=== PATIENT | female | born 2000 | race Caucasian/White ===

== ENCOUNTER → 2020-08-27 | Outpatient (CLI) | payer BC ==
[~2020-08-27] VITALS: Ht 162.6 cm; Wt 115.5 kg
[~2020-08-27] MED LIST: PRENATAL TABLET PO
--- NOTE | 2020-08-27 12:59 | NUR ---
Pt presents with mother ambulatory to unit at 1210. Pt states she was sent from office to check for leaking of fluid. She states she passed a blood clot this weekend and was at the office for follow up, doing tele conference with MFM. MFM concerned that pt leaking fluid since this weekend due to low fluid noted on ultrasound. Pt denies notice or feeling of leaking fluid, denies vaginal bleeding since this weekend. Pt state she is having some bloody/brownish discharge. Reports good movement and no contractions. EFM explained and placed. AmnioTest done, swab negative for fluid. Dr. Lovell notified of pt status, FHR, and Amniotest results. Orders received for AmnioSure.
[2020-08-27 13:20] VITALS: BP 141/75; PULSE 111; TEMP 98.9
--- NOTE | 2020-08-27 13:43 | NUR ---
Per Roles, discharge orders entered in. Discharge instructions provided and discussed with pt, verbal acknowledgement obtained. Pt and mother left unit at 1325
== END ==
LOC: LDRO 11:54
DX: O41.02X0 Oligohydramnios, second trimester, not applicable or unspecified (principal); Z3A.22 22 weeks gestation of pregnancy

== ENCOUNTER 2020-08-30 10:19 | Inpatient (IN) | payer BC ==
[2020-08-30] VITALS (13 sets, daily range): BP systolic 121–149; BP diastolic 62–78; PULSE 85–133; TEMP 98.6
[~2020-08-30] VITALS: Ht 162.6 cm; Wt 115.0 kg
--- NOTE | 2020-08-30 09:24 | NUR ---
PT HERE DUE TO VAGINAL BLEEDING AND CRAMPING THAT STARTED ABOUT 0100 THIS MORNING. CRAMPING IS INTERMITTENT AND PAINFUL BUT NOT GETTING ANY WORSE. BLEEDING HAS INCREASED. HEART TONES FOUND IN THE 160'S. NO VAGINAL EXAM PERFORMED DR HILL IS ON HER WAY TO ASSESS PT. PLAN OF CARE REVIEWED.
--- NOTE | 2020-08-30 10:30 | NUR ---
CANNOT PALPATE CONTRACTIONS NOR CAN TRACE ANY CONTRACTIONS. PT PUSHING BUTTON WHEN SHE HAS THEM
[2020-08-30 10:37] LABS: MEAN CELL VOLUME 86 fl (80.0-100.0); MEAN CORPUSCULAR HEMOGLOBIN 29 pg (27.0-31.0); MEAN CORPUSCULAR HGB CONC 34 g/dl (33.0-37.0); MEAN PLATELET VOLUME 9.6 fl (7.4-10.4); PLATELET COUNT 325 K/mm3 (130-400); RED BLOOD COUNT 3.75 M/mm3 (4.10-5.30); REDCELL DISTRIBUTION WIDTH-CV 14.1 % (11.5-14.5)
[2020-08-30 10:39] LABS: HEMATOCRIT 32.3 % (37.0-47.0)
[2020-08-30 10:47] LABS: ALBUMIN 3.9 gm/dL (3.5-5.0); BILIRUBIN,TOTAL 0.4 mg/dL (0.0-1.0); CALCIUM 9.5 mg/dL (8.4-10.2); CREATININE, serum 0.51 (0.52-1.25); POTASSIUM 4.1 mmol/L (3.4-5.0); TOTAL PROTEIN 7.2 gm/dL (6.4-8.2)
--- NOTE | 2020-08-30 11:50 | NUR ---
0945-DR HILL IN TO SEE PT. PT HAVING BRIGHT RED BLEEDING WITH A SLOW TRICKLE COMING OUT OF HER VAGINA CONSTANTLY. PT HAS BUTTON SHE IS PUSHING WHEN SHE IS EXPERIENCING CONTRACTIONS WHICH ARE IRREGULAR BUT MAKE PT STOP AND HAVE TO BREATHE THROUGH THEM. DR HILL PERFORMS SPECULUM EXAM, SVE /-3 AND BEDSIDE ULTRASOUND CONFIRMING BREECH PRESENTATION. DR DISCUSSES PLAN OF CARE WITH PT AND HER MOTHER. PLAN WILL BE TO TRANSFER PT TO HIGHER LEVEL OF CARE-SPECIFICALLY [facility] SINCE PT HAS BEEN IN CONTACT WITH MFM AT [facility]. PT AGREES TO PLAN. 1010-IV STARTED IN RIGHT HAND WITH LR INFUSING. 1020-12MG CELESTONE GIVEN IM IN LEFT THIGH. SECOND IV SITE STARTED IN LEFT FOREARM. 1030-6MG MAGNESIUM SULFATE BOLUS STARTED IN RIGHT HAND IV SITE 1034-ZITHROMAX 1GM GIVEN PO 1038-AMPICILLIN 2GM STARTED PER LEFT FOREARM IV 1040-DR HILL IN TO TALK WITH PT. SHE WILL BE TRANSFERRED TO [facility]. 1050-DR GILLIAM, SCALE SHOOTER, IN TO TALK WITH PT REGARDING PLAN FOR BABY PT IS 22 WEEKS AND FETUS IN NON-VIABLE. DR WATT, NICU DR FROM [facility], ON SPEAKER PHONE TALKING WITH MOTHER ABOUT PLAN OF CARE WITH THE HOPE THE BABY WILL NOT DELIVERY IMMINENTLY. 1054-LARGE AMOUNT OF POOLED BLOOD UNDER PT. DR HILL IN. SPECULUM EXAM PERFORMED WITH SVE AND PT IS /-1 1102-NOEL CATHETER PLACED WITH CLEAR YELLOW URINE RETURNED AND PT PLACED IN [place] AFTER NOEL PLACEMENT. 1122-PT FEELING LIKE SHE NEEDS TO VOMIT, SAT HER UP AND STARTED VOMITING IMMEDIATELY. CLEANED PT UP AND REPOSITIONED. FHT'S VERY DIFFICULT TO MONITOR. PT CONTINUES TO PUSH HER BUTTON MARKING IRREGULAR CONTRACTIONS. 1140-COVID SWAB PERFORMED PER ORDER 1142-PT CRYING SAYING HER BACK HURTS TERRIBLE, SHE IS HAVING A VERY STRONG CONTRACTION AND FEELS LIKE SHE NEEDS TO POOP. SVE /+1 1143-DR HILL IN. PT PREPPED AND POSITIONED FOR DELIVERY. 1145-DR GILLIAM AND NURSERY NURSES TO LABOR ROOM. NOEL CATHETER REMOVED. 1149- OF MALE INFANT. TO MOTHER'S CHEST IMMEDIATELY AND WRAPPED IN WARM BLANKETS. NO RESUSCITATIVE MEASURES TO BE TAKEN DUE TO EXTREME PREMATURITY AND NON-VIABLE FETUS. MAGNESIUM SULFATE STOPPED.
--- NOTE | 2020-08-30 11:50 | NUR ---
DR HILL AT BEDSIDE AFTER DELIVERY OF INFANT. WAITING FOR DELIVERY OF PLACENTA. PERINEUM INTACT
--- NOTE | 2020-08-30 12:56 | NUR ---
[facility] regarding Baby Boy Alen. Due to size he will not be a candidate for transplant. Confirmation #[id number]
--- NOTE | 2020-08-30 13:50 | NUR ---
PT RESTING IN BED. EATING A SNACK. FUNDUS FIRM WITH MINIMAL BLEEDING OBSERVED.
--- NOTE | 2020-08-30 14:20 | NUR ---
IV TO INT ON RIGHT HAND. LEFT FOREARM INT DISCONTINUED. PT UP TO BATHROOM. VOIDS WITHOUT DIFFICULTY. PERICARE PERFORMED. BACK TO BED. EDUCATION COMPLETE.
[2020-08-30 16:42] LABS: HEMOGLOBIN 10.9 g/dl (12.5-16.0); MEAN CELL VOLUME 89 fl (80.0-100.0); MEAN CORPUSCULAR HEMOGLOBIN 30 pg (27.0-31.0); MEAN CORPUSCULAR HGB CONC 33 g/dl (33.0-37.0); MEAN PLATELET VOLUME 9.7 fl (7.4-10.4); PLATELET COUNT 366 K/mm3 (130-400); RED BLOOD COUNT 3.69 M/mm3 (4.10-5.30)
[2020-08-30 16:50] LABS: HEMATOCRIT 32.7 % (37.0-47.0)
== END 2020-08-30 17:50 | disposition home or self-care (01) | DRG 807 ==
LOC: LDRO 10:19 → LDR 12:25
PROVIDERS: ADMIT Student in an Organized Health Care Education/Training Program
PROC: 10E0XZZ Delivery of Products of Conception, External Approach (ICD-10-PCS; principal; 2020-08-30)
DX: O42.012 Preterm premature rupture of membranes, onset of labor within 24 hours of rupture, second trimester (principal); Z37.0 Single live birth; O99.214 Obesity complicating childbirth; E66.9 Obesity, unspecified; Z20.822 Contact with and (suspected) exposure to COVID-19; O69.81X0 Labor and delivery complicated by cord around neck, without compression, not applicable or unspecified; O32.1XX0 Maternal care for breech presentation, not applicable or unspecified; Z3A.22 22 weeks gestation of pregnancy
CPT/HCPCS: J0290; J0702; J2590; J3475; J7120

== ENCOUNTER 2021-07-13 13:20 | Inpatient (IN) | payer BC ==
[~2021-07-13] VITALS: Ht 162.6 cm; Wt 125.9 kg
[2021-07-14] VITALS (50 sets, daily range): BP systolic 126–186; BP diastolic 61–743; PULSE 64–155; TEMP 97–98.9
--- NOTE | 2021-07-14 06:15 | NUR ---
0615-40.3 arrives on unit for scheduled IOL. Ambulates to LDR5 with family. Changed to gown. Normal movement, denies LOF, VB. Reports occasional contractions. 0621- EFM explained and placed x2. Reviewed plan of care. Assessment completed, consent explained and signed. 0638-FHR decel from baseline 150s to 115bpm and lasting 100 seconds. Spontaneous return to baseline. Contractions tracing intermittenly. Unable to determine FHR decel onset. Patient wedged left. Will continue to monitor. 0700-IV to right hand. Routine labs obtained. FHR 150, minimal variablity. LR bolus started. 0727-Pitocin explained and started at 2 mu per orders. Plan of care reviewed with patient, verbalizes understanding. Call light within reach.
[2021-07-14] MEDS ORDERED: PRENATAL TABLET PO (06:46)
[2021-07-14 07:34] LABS: BASO % 0.2 % (0.0-2.0); EOS % 0.2 % (0-4.0); GRAN # 7.7 K/mm3 (1.4-6.5); GRAN % 76.3 % (42.2-75.2); HEMOGLOBIN 11.5 g/dl (12.5-16.0); LYMPH # 1.6 K/mm3 (1.2-3.4); LYMPH % 16.1 % (20.0-51.0); MEAN CELL VOLUME 86 fl (80.0-100.0); MEAN CORPUSCULAR HEMOGLOBIN 29 pg (27.0-31.0); MEAN CORPUSCULAR HGB CONC 33 g/dl (33.0-37.0); MONO # 0.7 K/mm3 (0.1-0.6); MONO % 6.7 % (1.7-9.3); PLATELET COUNT 302 K/mm3 (130-400); RED BLOOD COUNT 4.03 M/mm3 (4.10-5.30); REDCELL DISTRIBUTION WIDTH-CV 15.2 % (11.5-14.5)
[2021-07-14 07:36] LABS: HEMATOCRIT 34.6 % (37.0-47.0)
--- NOTE | 2021-07-14 08:30 | NUR ---
0830-EFM halving heart rate. RN at bedside. FHR audible at 140s.
--- NOTE | 2021-07-14 10:45 | NUR ---
1045-Difficulty tracing contractions due to maternal position. This RN at bedside adjusting TOCO and repositioning patient.
--- NOTE | 2021-07-14 10:45 | NUR ---
1045-Bilat sideline hip release done.
--- NOTE | 2021-07-14 11:00 | NUR ---
1100-Difficulty tracing contractions due to maternal position. This RN at bedside adjusting TOCO.
--- NOTE | 2021-07-14 11:15 | NUR ---
this RN is taking over for lunch relief at this time
--- NOTE | 2021-07-14 12:32 | NUR ---
1232- at bedside assessing patient and FHR. SVE 5100/-1. 1235- reviews IUCP with patient. Patient agrees with plan of care. IUCP is placed. Patient tolerates well. 1245-MVUs 210. 1338-MVUs 170. 1343- at bedside assessing patient and FHR. SVE 6/100/-1. Plan of care discussed. 1430-MVUs 235.
--- NOTE | 2021-07-14 15:10 | NUR ---
1510-MVUs 170.
--- NOTE | 2021-07-14 15:30 | NUR ---
1530-Difficulty tracing FHR due to maternal position. This RN at bedside adjusting FHR monitor. 1543-FSE placed by ANUJ Hill.
--- NOTE | 2021-07-14 16:30 | NUR ---
1630-MVUs 255
--- NOTE | 2021-07-14 16:35 | NUR ---
1635- at bedside assessing patient and FHR. 1640-SVE /+1 per physician.
--- NOTE | 2021-07-14 17:20 | NUR ---
1720-SVE C/100/+1. Patient pushing intermittenly. 1722: notified that patient is ready to push. 1737: at bedside, instructs patient to push. 1740:Patient prepared for vaginal delivery.
--- NOTE | 2021-07-14 17:45 | NUR ---
174-Spontaneous vaginal delivery of viable female infant. Infant placed on patient's abdomen. Dried and stimulated by ANUJ Vo. 1746-Cord clamped x2 and cut by FOB. care assumed by ANUJ Vo. Cord blood obtained. 1749-Lidocaine injected by . See EMAR. 1751-Spontaneous delivery of intact placenta. Pitocin bolus started per protocol. Fundal massage done by physician. 1809-Patient to OR via bed. 1814-Report to ANUJ Martínez.
--- NOTE | 2021-07-14 18:45 | NUR ---
1845 TO LR5 FROM OR PER BED WHERE PT WAS TAKEN TO BETTER VISUALIZE LACERATION REPAIR PER DR ALEXANDER' REQUEST. SEE ANESTHSIA RECORD FOR MORE INFORMATION. PT AWAKE AND ALERT. IV FLUIDS INFUSING. VOICES NO COMPLAINTS.
--- NOTE | 2021-07-14 19:30 | NUR ---
193 REGULAR DIET TAKEN. VISITS WITH FAMILY
--- NOTE | 2021-07-14 20:15 | NUR ---
2014 MOTRIN AND TYLENOL GIVEN ORDERED. 2029 UP TO BR WITH ASSIST AND VOIDED 300CC. PERICARE DONE. AMB TO 215 AND KATIE WELL
[2021-07-15 02:00] VITALS: BP 128/75; PULSE 102; TEMP 98.4
[2021-07-15 07:28] VITALS: BP 147/69; PULSE 107; TEMP 98
[2021-07-15 07:47] LABS: BASO % 0.2 % (0.0-2.0); EOS % 0.1 % (0-4.0); GRAN # 10.1 K/mm3 (1.4-6.5); GRAN % 75.6 % (42.2-75.2); LYMPH # 2.3 K/mm3 (1.2-3.4); LYMPH % 16.8 % (20.0-51.0); MEAN CORPUSCULAR HGB CONC 31 g/dl (33.0-37.0); MEAN PLATELET VOLUME 10.2 fl (7.4-10.4); MONO # 0.9 K/mm3 (0.1-0.6); MONO % 6.9 % (1.7-9.3); PLATELET COUNT 265 K/mm3 (130-400); RED BLOOD COUNT 3.38 M/mm3 (4.10-5.30); REDCELL DISTRIBUTION WIDTH-CV 15.5 % (11.5-14.5)
[2021-07-15 07:48] LABS: HEMATOCRIT 31.2 % (37.0-47.0); HEMOGLOBIN 9.8 g/dl (12.5-16.0); MEAN CELL VOLUME 92 fl (80.0-100.0); MEAN CORPUSCULAR HEMOGLOBIN 29 pg (27.0-31.0)
[2021-07-15] MEDS ORDERED: MOTRIN 800800 MG/TAB PO (08:05)
--- NOTE | 2021-07-15 10:45 | NUR ---
PATIENT WATCHED EDUCATIONAL VIDEOS
[2021-07-15 12:00] VITALS: BP 123/66; PULSE 88; TEMP 98
[2021-07-15 16:00] VITALS: BP 125/66; PULSE 95; TEMP 98.1
--- NOTE | 2021-07-15 16:52 | NUR ---
DISCHARGE TEACHING COMPLETED. EDUCATED ON FOLLOW UP APPOINTMENT AND PRESCRIPTIONS. QUESTIONS INVITED AND ANSWERED.
--- NOTE | 2021-07-15 18:50 | NUR ---
Motrin and Tylenol administered. Encouraged to call with questions or concerns. Ambulated to vehicle at this time with visitors, infant, and this staff.
== END 2021-07-15 18:50 | disposition home or self-care (01) | DRG 806 ==
LOC: LDR 07-14 06:03 → OB 07-14 20:30
PROVIDERS: ADMIT Obstetrics & Gynecology
PROC: 10E0XZZ Delivery of Products of Conception, External Approach (ICD-10-PCS; principal; 2021-07-14)
PROC: 0UQGXZZ Repair Vagina, External Approach (ICD-10-PCS; 2021-07-14)
DX: O99.02 Anemia complicating childbirth (principal); O71.4 Obstetric high vaginal laceration alone; Z37.0 Single live birth; O99.214 Obesity complicating childbirth; E66.9 Obesity, unspecified; Z3A.40 40 weeks gestation of pregnancy; D64.9 Anemia, unspecified
CPT/HCPCS: J2270; J2405; J2590; J2704; J3010; J7120

== ENCOUNTER 2023-09-05 03:13 | Outpatient (CLI) | payer OTHER ==
[~2023-09-05] VITALS: Ht 162.6 cm; Wt 125.4 kg
[~2023-09-05 03:13] MED LIST changes: +MOTRIN 800800 MG/TAB PO
[2023-09-05 04:00] VITALS: BP 149/78; PULSE 91; TEMP 98.2
[2023-09-05 04:40] VITALS: BP 135/74; PULSE 91
--- NOTE | 2023-09-05 04:52 | NUR ---
WRITTEN AND VERBAL DISCHARGE INSTRUCTIONS PROVIDED TO PT. PT VERBALIZED UNDERSTANDING AND DENIES QUESTIONS/CONCERNS AT THIS TIME. PT AMBULATED OFF UNIT ACCOMPANIED BY SPOUSE. PT STABLE AT TIME OF DC.
== END 2023-09-05 04:52 | disposition home or self-care (01) ==
LOC: LDRO 03:13
DX: O47.1 False labor at or after 37 completed weeks of gestation (principal); Z3A.39 39 weeks gestation of pregnancy

== ENCOUNTER 2023-09-08 02:38 | Inpatient (IN) | payer OTHER ==
[~2023-09-08] VITALS: Ht 162.6 cm; Wt 130.5 kg
[2023-09-08] VITALS (30 sets, daily range): BP systolic 119–176; BP diastolic 62–95; PULSE 69–121; TEMP 97.8–98.7
--- NOTE | 2023-09-08 02:40 | NUR ---
PT ASSISTED TO RM VIA WHEELCHAIR. THE PATIENT DENIES LOF/VB, DOES REPORT GOOD MOVEMENT AND CONTRACTIONS. PT TO THE BATHROOM TO CHANGE INTO CLEAN GOWN. PT THEN PLACED ON EFM AND TOCO. DIFFICULTY TRACING HEART TONES D/T MATERNAL HABITUS. SVE /-1. NOTIFIED PHYSICIAN TELEPHONE TECHNICIAN OF PT EVALUATION, ORDERS FOR ADMISSION RCVD. SEE PHYSICIAN NOTIFICATION. IV STARTED, LABS DRAWN, IVF INFUSING, PEN-G ADMINISTERED. ALL QUESTIONS ASKED AND ANSWERED. ADMISSION CONSENTS SIGNED. PT STABLE AT THIS TIME. NO FURTHER CONCERNS AT PRESENT TIME REGARDING THIS PATIENT.
[2023-09-08 03:45] LABS: BASO % 0.2 % (0.0-2.0); EOS % 0.2 % (0.0-4.0); GRAN # 11.4 K/mm3 (1.4-6.5); GRAN % 81.6 % (42.2-75.2); HEMATOCRIT 36.1 % (37.0-47.0); HEMOGLOBIN 11.8 g/dl (12.5-16.0); LYMPH # 1.7 K/mm3 (1.2-3.4); LYMPH % 12.2 % (20.0-51.0); MEAN CELL VOLUME 88 fl (80.0-100.0); MEAN CORPUSCULAR HEMOGLOBIN 29 pg (27-31); MEAN CORPUSCULAR HGB CONC 33 g/dl (33.0-37.0); MEAN PLATELET VOLUME 9.8 fl (7.4-10.4); MONO # 0.7 K/mm3 (0.1-0.6); MONO % 4.9 % (1.7-9.3); PLATELET COUNT 281 K/mm3 (130-400); REDCELL DISTRIBUTION WIDTH-CV 15.9 % (11.5-14.5)
[2023-09-08 04:17] LABS: ALBUMIN 2.7 gm/dL (3.5-5.0); BILIRUBIN,TOTAL 0.3 mg/dL (0.2-1.2); CALCIUM 9.4 mg/dL (8.4-10.2); CREATININE, serum 0.65 mg/dL (0.57-1.11); POTASSIUM 3.8 mmol/L (3.5-4.5); TOTAL PROTEIN 6.7 gm/dL (6.2-8.1)
--- NOTE | 2023-09-08 04:18 | NUR ---
PER PATIENT REQUEST; UP TO WARM SHOWER. HEART RATE CATEGORY 1 TRACING. ALLOWING PATIENT TO BE OFF MONITOR FOR 30 MINUTES.
--- NOTE | 2023-09-08 06:15 | NUR ---
REPORT GIVEN TO ANUJ FINN.
--- NOTE | 2023-09-08 06:45 | NUR ---
0643PT CALLS OUT SAYING SHE FEELS "PUSHY" AND THAT SHE HAS A LOT OF RECTAL PRESSURE. 0645THIRena RN AT BEDSIDE. BRET RN ALSO AT BEDSIDE. SVE BY BRET AT THIS TIME. WITH A ONELIA.
[2023-09-08] MEDS ORDERED: AMOXICILLIN 50500 MG PO (07:04)
--- NOTE | 2023-09-08 07:38 | NUR ---
SECOND DOSE OF PENICILLIN G STARTED
--- NOTE | 2023-09-08 08:29 | NUR ---
0825DR ALEXANDER OUT OF SURGERY AT NURSE'S STATION. 0828DR ALEXANDER AT BEDSIDE. DISCUSSES POC WITH PT. PT VERBALIZES AGREEMENT. 0829SVE AT THIS TIME PER DR ALEXANDER. /-1. AROM AT THIS TIME. MODERATE AMOUNT OF CLEAR FLUID NOTED.
--- NOTE | 2023-09-08 09:00 | NUR ---
DR MYERS AT BEDSIDE FOR SVE. SVE PER DR ALEXANDER. UNCHANGED /-2
--- NOTE | 2023-09-08 09:40 | NUR ---
SVE AT THIS TIME BY THIS RN WITH DOUBLE CHECK BY ROOSEVELT LESLIE. 8/100/0. PT TOLERATED WELL.
--- NOTE | 2023-09-08 10:00 | NUR ---
DR ALEXANDER CALLED AT THIS TIME TO CHECK IN. THIS RN STATED "I CHECKED HER WITH ROOSEVELT AT ABOUT 0940. 8/100/0. PT IS ABE UNCOMFORTABLE. CTX 3-[address] ALEXANDER ASKED IF SHE APPEARS LIKE SHE IS IN ACTIVE LABOR? I STATED "SHE DOES SEEM TO BE MORE UNCOMFTABLE NOW THEN SHE WAS BEFORE AROM." DR ALEXANDER STATED "OKAY SOUNDS GOOD. CHECK HER AROUND 1040 AND THEN START SOME PITOCIN IF STILL UNCHANGED." THIS RN STATED "SOUNDS LIKE A PLAN." THIS RN CALLED DR ALEXANDER BACK AT 1003, TO INFORM HIM OF PT BLOOD PRESSURES. "SHE HAD A BLOOD PRESSURE OF 190/85, BUT IT WAS TAKEN DURING A CTX. I DID ANOTHER BLOOD PRESSURE 5 MINUTES LATER IN THE OTHER ARM AND GOT 157/77. THEN ANOTHER ONE JUST TOOK AND IT WAS 137/72." DR ALEXANDER STATED "OKAY SOUNDS GOOD. THANKS FOR LETTING ME KNOW."
--- NOTE | 2023-09-08 10:51 | NUR ---
1030SVE AT THIS TIME WITH DOUBLE CHECK BY ROOSEVELT LESLIE. 1032DJanet ALEXANDER NOTIFIED. HE STATES HE IS ON HIS WAY. CHARGE NURSE AND NURSERY NURSE NOTIFIED. ROOM AND SUPPLIES SET UP FOR DELIVERY. 1040DR ALEXANDER AT BEDSIDE. PT AND ROOM SET UP FOR DELIVERY. 1045THIS NURSE AND DR ALEXANDER BEGAN PUSHING WITH PT AT THIS TIME. GOOD MATERNAL EFFORT. 1051SVD OF VIABLE FEMALE PER DR ALEXANDER. PLACED ON MATERNAL ABDOMEN. CARE ASSUMED BY NURSERY NURSE. 1059SVD OF PLACENTA PER DR ALEXANDER. 2ND DEGREE PERINEAL LACERATION NOTED. REPAIR STARTED AT THIS TIME. FUNDUS FIRM AT U. LOCHIA WNL. 1105REPAIR FINISHED AT THIS TIME PER DR ALEXANDER. FUNDUS FIRM AT U. LOCHIA WNL. PT VITAL SIGNS STABLE. PT TOLERATED WELL. ROOM AND BED PUT BACK TOGETHER. 1107PERICARE PERFORMED. ICE PACK PLACED ON PERINEUM. PT COMFORTABLE IN BED. PT VITAL SIGNS STABLE. FUNDUS FIRM AT U. LOCHIA WNL.
[2023-09-09] MEDS ORDERED: IBU600 MG PO (07:39)
[2023-09-09 08:00] VITALS: BP 134/81; PULSE 98; TEMP 98.1
== END 2023-09-09 13:05 | disposition home or self-care (01) | DRG 807 ==
LOC: LDRO 02:38 → LDR 02:39 → OB 12:55
PROVIDERS: Obstetrics & Gynecology; ADMIT Obstetrics & Gynecology
PROC: 10E0XZZ Delivery of Products of Conception, External Approach (ICD-10-PCS; principal; 2023-09-08)
PROC: 0KQM0ZZ Repair Perineum Muscle, Open Approach (ICD-10-PCS; 2023-09-08)
DX: O99.824 Streptococcus B carrier state complicating childbirth (principal); Z37.0 Single live birth; Z3A.39 39 weeks gestation of pregnancy; O43.113 Circumvallate placenta, third trimester; O99.214 Obesity complicating childbirth; O99.02 Anemia complicating childbirth; D64.9 Anemia, unspecified; O70.1 Second degree perineal laceration during delivery; O69.81X0 Labor and delivery complicated by cord around neck, without compression, not applicable or unspecified; O13.4 Gestational [pregnancy-induced] hypertension without significant proteinuria, complicating childbirth
CPT/HCPCS: J2540; J2590; J7120